=== PATIENT | female | born 1980 | race Caucasian/White ===

== ENCOUNTER 2022-01-13 06:01 | Emergency (ER) | payer OTHER ==
[2022-01-13 06:13] VITALS: BP 169/100; PULSE 86; RESP 17; TEMP 98.1; BMI 35.2
[2022-01-13] MEDS ORDERED: ACETAMINOPHEN 1000 MG/100 ML BAG IVPB ONE (06:20)
[2022-01-13] MEDS ORDERED: ACETAMINOPHEN INJECTION 100 ML IVPB ONE (06:47)
[2022-01-13 07:15] LABS: BASO % 0.8 % (0-2.0); EOS % 1.2 % (0-4.5); HEMATOCRIT 36.2 % (32.4-45.2); HEMOGLOBIN 12.4 GM/dL (10.7-15.3); LYMPH % 24.2 % (8-40); MCH 29.6 pg (25.7-33.7); MCHC 34.2 g/dl (32.0-36.0); MEAN CELL VOLUME 86.4 fl (80-96); MEAN PLT VOLUME 7.9 fl (7.5-11.1); MONO % 7.3 % (3.8-10.2); NEUT % 66.5 % (42.8-82.8); PLATELET COUNT 280 10^3/uL (134-434); RBC 4.19 M/mm3 (3.60-5.2); RDW 13.5 % (11.6-15.6); WHITE BLOOD COUNT 11.1 K/mm3 (4.0-10.0)
[2022-01-13 07:21] LABS: INR 1.03 (0.83-1.09); PROTHROMBIN TIME (PATIENT) 11.8 SEC (9.7-13.0)
[2022-01-13 07:34] LABS: CALCIUM 8.7 mg/dL (8.5-10.1)
[2022-01-13 07:35] LABS: ALBUMIN 3.6 g/dl (3.4-5.0); BLOOD UREA NITROGEN 9.8 mg/dL (7-18)
[2022-01-13 07:37] LABS: CREATININE 0.6 mg/dL (0.55-1.3)
[2022-01-13 07:39] LABS: BILIRUBIN,TOTAL 0.5 mg/dL (0.2-1); TOT PROT 6.7 g/dl (6.4-8.2)
[2022-01-13 08:40] LABS: URINE APPEARANCE CLEAR; URINE BILIRUBIN NEGATIVE (NEGATIVE); URINE COLOR YELLOW; URINE GLUCOSE (UA) NEGATIVE (NEGATIVE); URINE KETONE NEGATIVE (NEGATIVE); URINE LEUK ESTERASE NEGATIVE (NEGATIVE); URINE NITRITE NEGATIVE (NEGATIVE); URINE PROTEIN NEGATIVE (NEGATIVE); URINE UROBILINOGEN 0.2 mg/dL (0.2-1.0)
[2022-01-13 09:03] LABS: HCG,QUALITATIVE URINE Negative
== END 2022-01-13 11:05 | disposition home or self-care (01) ==
LOC: JER 06:01
PROC: 3E033NZ Introduction of Analgesics, Hypnotics, Sedatives into Peripheral Vein, Percutaneous Approach (ICD-10-PCS; principal; 2022-01-13)
DX: R10.9 Unspecified abdominal pain (principal)
CPT/HCPCS: 36415; 76705-TC; 80053; 81003; 83690; 84703; 85025; 85610; 86850; 86900; 86901; 93005; 93010; 99284-25; C9803-CS; U0003; U0005

== ENCOUNTER 2022-03-30 14:03 | Emergency (ER) | payer OTHER ==
[2022-03-30 14:07] VITALS: PULSE 81; RESP 18; TEMP 97; BMI 35.9
[2022-03-30] MEDS ORDERED: SODIUM CHLORIDE 0.9% 500 ML INFUS.BAG IV ONE (15:57)
[2022-03-30] MEDS ORDERED: ONDANSETRON 4 MG/2 ML VIAL IVPUSH ONE (15:58)
[2022-03-30] MEDS ORDERED: KETOROLAC TROMETHAMINE 30 MG/1 ML VIAL IVPUSH ONE (15:58)
[2022-03-30] MEDS ORDERED: ONDANSETRON 4 MG/2 ML VIAL ONE (16:13)
[2022-03-30] MEDS ORDERED: KETOROLAC TROMETHAMINE 30 MG/1 ML VIAL ONE (16:13)
[2022-03-30 16:25] LABS: EPI CELLS 32 /uL (0-25.1); HCG,QUALITATIVE URINE Negative; HYALINE CASTS 1 /uL (0-3.1); PH,URINE 6.5 (5.0-8.0); URINE APPEARANCE CLOUDY; URINE BACTERIA 1433 /uL (0-1359); URINE BILIRUBIN NEGATIVE (NEGATIVE); URINE COLOR YELLOW; URINE GLUCOSE (UA) NEGATIVE (NEGATIVE); URINE KETONE NEGATIVE (NEGATIVE); URINE LEUK ESTERASE NEGATIVE (NEGATIVE); URINE NITRITE NEGATIVE (NEGATIVE); URINE PROTEIN NEGATIVE (NEGATIVE); URINE RBC 37 /uL (0-23.9); URINE UROBILINOGEN 0.2 mg/dL (0.2-1.0); URINE WBC 17 /uL (0-25.8)
[2022-03-30 16:38] LABS: BASO % 1.1 % (0-2.0); EOS % 1.9 % (0-4.5); HEMATOCRIT 39.1 % (32.4-45.2); LYMPH % 37.1 % (8-40); MCH 28.9 pg (25.7-33.7); MCHC 33.3 g/dl (32.0-36.0); MEAN CELL VOLUME 86.9 fl (80-96); MEAN PLT VOLUME 8.1 fl (7.5-11.1); MONO % 6.8 % (3.8-10.2); NEUT % 53.1 % (42.8-82.8); PLATELET COUNT 315 10^3/uL (134-434); RDW 13.7 % (11.6-15.6)
[2022-03-30 16:44] LABS: ALBUMIN 3.9 g/dl (3.4-5.0); BLOOD UREA NITROGEN 10.9 mg/dL (7-18); CALCIUM 9.3 mg/dL (8.5-10.1)
[2022-03-30 16:47] LABS: CREATININE 0.6 mg/dL (0.55-1.3)
[2022-03-30 16:49] LABS: BILIRUBIN,TOTAL 0.4 mg/dL (0.2-1); TOT PROT 7.3 g/dl (6.4-8.2)
[2022-03-30 20:55] VITALS: BP 155/93
== END 2022-03-30 20:56 | disposition home or self-care (01) ==
LOC: JER 14:03
DX: N23 Unspecified renal colic (principal)
CPT/HCPCS: 36415; 74176-TC; 76705-TC; 80053; 81003; 83690; 84703; 85025; 87086; 99284-25

== ENCOUNTER 2024-01-21 13:30 | Emergency (ER) | payer SELFPAY ==
[2024-01-21 13:36] VITALS: RESP 18; BMI 35.7
[2024-01-21 16:57] LABS: BASO % 0.9 % (0-2.0); EOS % 1.3 % (0-4.5); HEMATOCRIT 37.9 % (32.4-45.2); HEMOGLOBIN 12.9 GM/dL (10.7-15.3); LYMPH % 31.4 % (8-40); MCHC 34.1 g/dl (32.0-36.0); MEAN CELL VOLUME 85.1 fl (80-96); MEAN PLT VOLUME 7.7 fl (7.5-11.1); MONO % 7.2 % (3.8-10.2); NEUT % 59.2 % (42.8-82.8); PLATELET COUNT 344 10^3/uL (134-434); RBC 4.45 M/mm3 (3.60-5.2); WHITE BLOOD COUNT 9.9 K/mm3 (4.0-10.0)
[2024-01-21 17:14] LABS: CALCIUM 9.7 mg/dL (8.5-10.1)
[2024-01-21 17:15] LABS: BLOOD UREA NITROGEN 12.6 mg/dL (7-18)
[2024-01-21 17:18] LABS: CREATININE 0.7 mg/dL (0.55-1.3)
[2024-01-21 17:19] LABS: BILIRUBIN,TOTAL 0.5 mg/dL (0.2-1); TOT PROT 7.6 g/dl (6.4-8.2)
[2024-01-21 19:49] VITALS: BP 144/103; PULSE 82; TEMP 98.5
== END 2024-01-21 20:18 | disposition home or self-care (01) ==
LOC: JER 13:30
DX: M71.20 Synovial cyst of popliteal space [Baker], unspecified knee (principal); I10 Essential (primary) hypertension; E04.1 Nontoxic single thyroid nodule; R07.81 Pleurodynia; R06.02 Shortness of breath; R61 Generalized hyperhidrosis
CPT/HCPCS: 36415; 71275-TC; 80053; 84484; 84703; 85025; 85379; 93005; 93010; 93970-TC; 99285-25; Q9967